=== PATIENT | female | born 1965 | race African-American/Black ===

== ENCOUNTER 2020-04-15 05:18 | Day surgery (SDC) | payer OTHER ==
--- OUTSIDE RECORDS SUMMARY | 2020-03-24 16:32 | XMS ---
:1965 Author Organization [facility] Care Team Providers Name Role Phone Mason Enciso Unavailable Mason Enciso Unavailable Lane Swanson Unavailable [phone] Williams Swanson Unavailable [phone] Williams Swanson Unavailable [phone] UNIQUE Kramer Unavailable Unavailable Re-disclosure Warning The records that you are about to access may contain information from federally- assisted alcohol or drug abuse programs. If such information is present, then the following federally mandated warning applies: This information has been disclosed to you from records protected by federal confidentiality rules (42 CFR part 2). The federal rules prohibit you from making any further disclosure of this information unless further disclosure is expressly permitted by the written consent of the person to whom it pertains or as otherwise permitted by 42 CFR part 2. A general authorization for the release of medical or other information is NOT sufficient for this purpose. The Federal rules restrict any use of the information to criminally investigate or prosecute any alcohol or drug abuse patient.The records that you are about to access may contain highly sensitive health information, the redisclosure of which is protected by Article 27-F of the [facility] Public Health law. If you continue you may haveaccess to information: Regarding HIV / AIDS; Provided by facilities licensed or operated by the [facility] Office of Mental Health; or Provided by the [facility] Office for People With Developmental Disabilities. If such information is present, then the following [facility] mandated warning applies: This information has been disclosed to you from confidential records which are protected by state law. State law prohibits you from making any further disclosure of this information without the specific written consent of the person to whom it pertains, or as otherwise permitted by law. Any unauthorized further disclosure in violation of state law may result in a fine or fpc sentence or both. A general authorization for the release of medical or other information is NOT sufficient authorization for further disclosure. Allergies and Adverse Reactions Type Description Substance Reaction Status Data Source(s ) Propensity to Propensity to Propensity to NEXTG EN ([facility] adverse reactions adverse reactions adverse reactions [facility] (disorder) (disorder) (disorder) [place]) Encounters Encounter Providers Location Date Indications Data Source(s ) Attender: Mason 03/23/2020 MEDGEN ([facility] [place] 12:00:00 AM ED Medical, ) Office Attender: Mason Enciso 03/23/2020 12:00:00 AM EDT MEDGEN ([facility], ) Office Outpatient Admitter: LANE Nichols 12/08/2018 10:39:00 [facility] AM EDT Medic al [place] M Outpatient Attender: LANE Nichols 12/08/2018 07:48:00 [facility] EDT - 12/08/2018 [facility] MAdmitter: LANE 01:27:00 PM EDT UNIQUE SHERMAN MReferrer: LANE Kramer Attender: Lane 12/08/2018 07:48:00 NEXTGEN ([facility] AM EDT - 12/08/2018 [facility] 07:48:00 AM EDT Center) Outpatient Attender: LANE Nichols 10/29/2018 01:04:00 [facility]ER[facility] EDT Medic al Center MAdmitter: LANE Kramer OutpatientOFFICE/OU Attender: [facility] 10/29/2018 01:04:00 NEXTGEN ([facility] VISIT, [facility] EDT - 10/29/2018 [facility] 01:04:00 PM EDT Center) Insurance Providers Payer name Policy type Policy ID Covered Covered republican's Policy P maite / Coverage republican ID relationship to [place] Inf ormation type knapp EMBLEM [id number] 1 [id number] HEALTH 1 HIP MEDICAID [id number] SP [id number] HIP O [id number] 01 [id number] 01 1 HIP O [id number] 01 [id number] Problems, Conditions, and Diagnoses Code Display Name Description Problem Type Effective Dates Data Source(s) M47.816 Spondylosis SPONDYLOSIS Problem 03/16/2020 MEDGEN ([facility] 12:00:00 AM EDT [facility], myelopathy or MYELOPATHY OR PC) radiculopathy, RADICULOPATHY, lumbar region LUMBAR REGION M47.812 Spondylosis SPONDYLOSIS Problem 03/16/2020 MEDGEN ([facility] without WITHOUT 12:00:00 AM EDT [facility], myelopathy or MYELOPATHY OR PC) radiculopathy, RADICULOPATHY, cervical region CERVICAL REGION K64.8 Other hemorrhoids OTHER HEMORRHOIDS Diagnosis 12/08/2018 [facility] 07:48:00 AM EDT Medical C enter 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 12/08/2018 Miguel A Cohen of sigmoid colon OF SIGMOID COLON 07:48:00 AM [facility] Z86.010 Personal history PERSONAL HISTORY Diagnosis 10/29/2018 Sa waylon Cohen of colonic polyps [facility] Procedure Description Date Indications Data Source(s) Documentation of current 03/16/2020 MED GEN ([facility] (procedure) 12:00:00 AM EDT MERY Mora) Documentation of current 03/16/2020 MED GEN ([facility] (procedure) 12:00:00 AM EDT MERY Mora) Documentation of current 03/16/2020 MED GEN ([facility] (procedure) 12:00:00 AM EDT MERY Mora) Documentation of current 03/16/2020 MED GEN ([facility] (procedure) 12:00:00 AM EDT MERY Mora) Documentation of current 03/16/2020 MED GEN ([facility] (procedure) 12:00:00 AM EDT MERY Mora) OFFICE OUTPATIENT NEW 30 03/16/2020 MED GEN ([facility] 12:00:00 AM EDT Medical, ) OFFICE/OUTPATIENT VISIT, 10/29/2018 NEX TGEN ([facility] 12:00:00 [facility]) 12:00:00 AM EDT Social History Code Duration Value Status Description Data Source(s ) Smoking 03/23/2020 Born: New completed Born: [place] MEDGEN (St 12:00:00 AM EDT [place] Ny occasional [facility] '[facility] Medical, occasional drinker smokes 5 PC) drinker smokes 5 cigarettes daily cigarettes daily Smoking 03/23/2020 Unknown if ever completed Unknown if ever MEDG EN (St 12:00:00 AM EDT smoked smoked [facility], ) Smoking Unknown if ever completed Unknown if ever Miguel A Cohen smoked smoked [facility] Vital Signs ID Date Data Source UNK Name Value Range Interpretation Code Description Data Source(s) Heart rate 77 /min 77 /min MEDGEN ([facility] , ) Respiratory rate 15 /min 15 /min [facility] ( [facility] , ) Inhaled oxygen 98 % 98 % MEDGEN ([facility], ) Body mass index 33.7 kg/m2 33.7 kg/m2 MEDGEN (S t (BMI) [Ratio] [facility], ) Diastolic blood 60 mm[Hg] 60 mm[Hg] MEDGEN (S t pressure [facility] , ) Systolic blood 120 mm[Hg] 120 mm[Hg] MEDGEN ([facility] , ) Body weight 215 lb 215 lb MEDGEN ([facility] , ) Body height 67 in 67 in MEDGEN ([facility] , ) Heart rate 89 /min 89 /min MEDGEN ([facility] , ) Respiratory rate 15 /min 15 /min MEDGEN ( [facility] , ) Inhaled oxygen 98 % 98 % MEDGEN ([facility], ) Body mass index 33.7 kg/m2 33.7 kg/m2 MEDGEN (S t (BMI) [Ratio] [facility], ) Diastolic blood 60 mm[Hg] 60 mm[Hg] MEDGEN (S t pressure [facility] , ) Systolic blood 110 mm[Hg] 110 mm[Hg] [facility] ([facility]) Body weight 215 lb 215 lb [facility] ([facility]) Body height 67 in 67 in [facility] ([facility]) Oxygen saturation in 97 % 97 % [facility] ([facility] Arterial blood by [facility] Pulse oximetry [place]) Body mass index 31.32 kg/m2 Overweight 31.32 kg/m2 [facility] ([facility] (BMI) [Ratio] [facility]) Respiratory rate 18 /min 18 /min [facility] ([facility]) Body temperature 36.56 Kaylah 36.56 Kaylah [facility] ([facility]) Heart rate 89 /min 89 /min [facility] ([facility]) Diastolic blood 90 mm[Hg] 90 mm[Hg] [facility] ( [facility]) Systolic blood 153 mm[Hg] 153 mm[Hg] [facility] ([facility]) Body weight 90.718 kg 90.718 kg [facility] ([facility]) Body height 170.18 cm 170.18 cm [facility] ([facility])
[2020-04-14 15:09] VITALS: BMI 33.6
--- NOTE | 2020-04-14 20:39 | PROC ---
Procedure Note Procedure: Pre procedure Diagnosis: Lumbar Spondylosis Post Procedure Diagnosis: same Anesthesia: Local Procedure Performed: Right and Left L3 L4 L5 Medial Branch Blocks under Fluoroscopic Guidance Procedure: After the risks and benefits were explained, informed consent was obtained. The patient was then taken to the procedure room and positioned prone on the procedure table. Time out was performed. The region overlying the appropriate vertebral bodies was identified using fluoroscopy. The skin was prepped and draped in the usual sterile fashion. The skin and soft tissues were anesthetized using 1% lidocaine. Using fluoroscopic guidance, 22 gauge 3.5 inch spinal needles were then introduced to the juncture of the superior articular processes and the transverse processes of the RIGHT L3, L4, and L5 medial branches are located. Omnipaque 180 confirmed appropriate needle placement. There was no epidural or vascular flow observed. .75% bupivacaine was drawn into a syringe. 0.5cc of this solution was then injected at each level. The same procedure was repeated on the LEFT side at the same levels. The patient tolerated the procedure well and there were no complications. The patient was taken to the post procedure recovery area in good condition. Vital signs remained stable before, and after the procedure. The patient was given oral follow-up instructions.The patient was givena follow up appointment with me in the near future. Mason Enciso D.O.
--- OUTSIDE RECORDS SUMMARY | 2020-04-15 05:21 | XMS ---
:1965 Author Organization [facility] Care Team Providers Name Role Phone NateMason bal Unavailable NateAguilar balhen Unavailable Re-disclosure Warning The records that you [...] is protected by Article 27-F of the [facility] Public Health law. If you continue you may haveaccess to information: Regarding HIV / AIDS; Provided by facilities licensed or operated by the [facility] Office of Mental Health; or Provided by the [facility] Office for People With Developmental Disabilities. If such information is present, then the following [facility] mandated warning applies: This information has [...] law may result in a fine or residential sentence or both. A general authorization for the release of medical or other information is NOT sufficient authorization for further disclosure. Encounters Encounter Providers Location Date Indications Data Source(s ) Attender: Mason 03/28/2020 MED[facility] ([facility] [place] 12:00:00 AM EDT Medical, PC) Office Attender: Mason [place] 03/28/2020 12:00:00 AM EDT [facility] ([facility]) Office Attender: Mason Natevaleriano 03/23/2020 12:00:00 AM EDT [facility] ([facility]) Office Attender: Mason Natevaleriano 03/23/2020 12:00:00 AM EDT [facility] ([facility]) Office Attender: Mason Natevaleriano 03/23/2020 12:00:00 AM EDT [facility] ([facility]) Office Attender: Mason Natea 03/23/2020 12:00:00 AM EDT [facility] ([facility]) Office Insurance Providers Payer name Policy type Policy ID Covered Covered green party's Policy P maite / Coverage green party ID relationship to [place] Inf ormation type knapp HIP MEDICAID [id number] [place] [id number] 1 [id number] 01 [facility] 1 HIP O [id number] 01 [id number] 01 1 HIP O [id number] Problems, Conditions, and Diagnoses Code Display Name [...] PC) radiculopathy, RADICULOPATHY, cervical region CERVICAL REGION M47.816 Spondylosis SPONDYLOSIS Problem 03/16/2020 MEDGEN ([facility] without WITHOUT 12:00:00 AM EDT [facility], myelopathy or MYELOPATHY OR PC) radiculopathy, RADICULOPATHY, lumbar region LUMBAR REGION M47.812 Spondylosis SPONDYLOSIS Problem 03/16/2020 MEDGEN ([facility] without WITHOUT 12:00:00 AM EDT [facility], myelopathy or MYELOPATHY OR PC) radiculopathy, RADICULOPATHY, cervical region CERVICAL REGION M47.816 Spondylosis SPONDYLOSIS Problem 03/16/2020 MEDGEN ([address] without WITHOUT 12:00:00 AM EDT [facility], myelopathy or MYELOPATHY OR PC) radiculopathy, RADICULOPATHY, lumbar region LUMBAR REGION M47.812 Spondylosis SPONDYLOSIS Problem 03/16/2020 MEDGEN ([facility] without WITHOUT 12:00:00 AM EDT [facility], myelopathy or MYELOPATHY OR PC) radiculopathy, RADICULOPATHY, cervical region CERVICAL REGION Surgeries/Procedures Procedure Description Date Indications Data Source(s) OFFICE OUTPATIENT VISIT 03/28/2020 MEDG EN ([facility] 10 MINUTES 12:00:00 AM ED Medical, ) Documentation of current 03/23/2020 MED GEN [facility] of current 03/23/2020 MED GEN ([facility] (procedure) 12:00:00 AM EDT idalmisical, ) Documentation of current 03/23/2020 MED GEN ([facility] OUTPATIENT VISIT 03/23/2020 MEDG EN ([facility] 25 MINUTES 12:00:00 AM EDT Medical, ) Documentation of current 03/23/2020 MED GEN ([facility] (procedure) 12:00:00 AM EDT idalmisical, ) OFFICE OUTPATIENT VISIT 03/23/2020 MEDG EN ([facility] 25 MINUTES 12:00:00 AM [facility] Medical, ) Documentation of current 03/16/2020 MED GEN ([facility] (procedure) 12:00:00 AM EDT edical, PC) Documentation of current 03/16/2020 MED GEN ([facility] (procedure) 12:00:00 AM EDT edical, PC) Documentation of current 03/16/2020 MED GEN ([facility] (procedure) 12:00:00 AM EDT edical, PC) Documentation of current 03/16/2020 MED GEN ([facility] (procedure) 12:00:00 AM EDT edical, PC) Documentation of current 03/16/2020 MED GEN ([facility] (procedure) 12:00:00 AM EDT edical, PC) Documentation of current 03/16/2020 MED GEN ([facility] (procedure) 12:00:00 AM EDT edical, PC) OFFICE OUTPATIENT NEW 03/16/2020 MED GEN ([facility] MINUTES 12:00:00 AM EDT Medical, PC) Documentation of current 03/16/2020 MED GEN ([facility] (procedure) 12:00:00 AM EDT idalmisical, PC) Documentation of current 03/16/2020 MED GEN ([facility] (procedure) 12:00:00 AM EDT idalmisical, PC) Documentation of current 03/16/2020 MED GEN ([facility] (procedure) 12:00:00 AM EDT idalmisical, PC) Documentation of current 03/16/2020 MED GEN ([facility] (procedure) 12:00:00 AM EDT edical, PC) Documentation of current 03/16/2020 MED GEN ([facility] (procedure) 12:00:00 AM EDT edical, PC) OFFICE OUTPATIENT NEW 03/16/2020 MED GEN ([facility] MINUTES 12:00:00 AM EDT Medical, PC) Documentation of current 03/16/2020 MED GEN ([facility] (procedure) 12:00:00 AM EDT edical, PC) Documentation of current 03/16/2020 MED GEN ([facility] (procedure) 12:00:00 AM EDT edical, PC) Documentation of current 03/16/2020 MED GEN ([facility] medications (procedure) 12:00:00 AM EDT M edical, PC) Documentation of current 03/16/2020 MED GEN ([facility] (procedure) 12:00:00 AM EDT [facility] raygozaical, PC) Documentation of current 03/16/2020 MED GEN ([facility] medications (procedure) 12:00:00 AM EDT M edical, PC) OFFICE OUTPATIENT NEW 30 03/16/2020 MED GEN ([facility] MINUTES 12:00:00 AM EDT Medical, PC) Social History Code Duration Value Status Description Data Source(s ) Smoking 03/28/2020 Born: New completed Born: [place] MEDGEN (St 12:00:00 AM EDT [facility] occasional [facility], occasional drinker smokes 5 PC) drinker smokes 5 cigarettes daily cigarettes daily Smoking 03/28/2020 Unknown if ever completed Unknown if ever MEDG EN (St 12:00:00 AM EDT smoked smoked [facility], PC) Smoking 03/23/2020 Born: New completed Born: [place] MEDGEN (St 12:00:00 AM EDT [facility] occasional [facility], occasional drinker smokes 5 PC) drinker smokes 5 cigarettes daily cigarettes daily Smoking 03/23/2020 Unknown if ever completed Unknown if ever MEDG EN (St 12:00:00 AM EDT smoked smoked [facility], PC) Smoking 03/23/2020 Born: New completed Born: [place] MEDGEN (St 12:00:00 AM EDT [facility] occasional [facility], occasional drinker smokes 5 PC) drinker smokes 5 cigarettes daily cigarettes daily Smoking 03/23/2020 Unknown if ever completed Unknown if ever MEDG EN (St 12:00:00 AM EDT smoked smoked [facility], PC) Vital Signs ID Date Data Source UNK Name Value Range Interpretation Code Description Data Source(s) Heart rate 77 /min 77 /min [facility] ([facility] , [facility]) Respiratory rate 15 /min 15 /min [facility]GEN ( [place]) Inhaled oxygen 98 % 98 % MEDGEN (St [facility]'s Medi semaj, PC) Body mass index 33.7 kg/m2 33.7 kg/m2 MEDGEN (S t (BMI) [Ratio] [facility], ) Diastolic blood 60 mm[Hg] 60 mm[Hg] MEDGEN (S t pressure [facility] , ) Systolic blood 120 mm[Hg] 120 mm[Hg] MEDGEN ([facility] , ) Body weight 215 lb 215 lb [facility] Body height 67 in in [facility] Heart rate 77 /min 77 /min [facility] Respiratory rate 15 /min 15 /min [facility] ( [facility] Inhaled oxygen 98 % 98 % MEDGEN ([facility], ) Body mass index 33.7 kg/m2 33.7 kg/m2 MEDGEN (S t (BMI) [Ratio] [facility], ) Diastolic blood 60 mm[Hg] 60 mm[Hg] MEDGEN (S t pressure [facility] , ) Systolic blood 120 mm[Hg] 120 mm[Hg] MEDGEN ([facility] , ) Body weight 215 lb 215 lb [facility] Body height 67 in in [facility] Heart rate 77 /min 77 /min [facility] Respiratory rate 15 /min 15 /min [facility] ( [facility] Inhaled oxygen 98 % 98 % MEDGEN ([facility], ) Body mass index 33.7 kg/m2 33.7 kg/m2 MEDGEN (S t (BMI) [Ratio] [facility], ) Diastolic blood 60 mm[Hg] 60 mm[Hg] MEDGEN (S t pressure [facility] , ) Systolic blood 120 mm[Hg] 120 mm[Hg] MEDGEN ([facility] , ) Body weight 215 lb 215 lb [facility] Body height 67 in 67 in [facility] Heart rate 89 /min 89 /min [facility] Respiratory rate 15 /min 15 /min [facility] ( [facility] Inhaled oxygen 98 % 98 % MEDGEN ([facility], ) Body mass index 33.7 kg/m2 33.7 kg/m2 MEDGEN (S t (BMI) [Ratio] [facility], ) Diastolic blood 60 mm[Hg] 60 mm[Hg] MEDGEN (S t pressure [facility] , ) Systolic blood 110 mm[Hg] 110 mm[Hg] MEDGEN ([facility] , ) Body weight 215 lb 215 lb MEDGEN ([facility] , ) Body height 67 in in [facility] ([facility] Heart rate 89 /min 89 /min MEDGEN ([facility] , ) Respiratory rate 15 /min 15 /min MEDGEN ( [facility] , ) Inhaled oxygen 98 % 98 % MEDGEN ([facility], ) Body mass index 33.7 kg/m2 33.7 kg/m2 MEDGEN (S t (BMI) [Ratio] [facility], ) Diastolic blood 60 mm[Hg] 60 mm[Hg] MEDGEN (S t pressure [facility] , ) Systolic blood 110 mm[Hg] 110 mm[Hg] MEDGEN ([facility] , ) Body weight 215 lb 215 lb [facility] ([facility] Body height 67 in in [facility] ([facility] Heart rate 89 /min 89 /min MEDGEN ([facility] , ) Respiratory rate 15 /min 15 /min MEDGEN ( [facility] , ) Inhaled oxygen 98 % 98 % MEDGEN ([facility], ) Body mass index 33.7 kg/m2 33.7 kg/m2 MEDGEN (S t (BMI) [Ratio] [facility], ) Diastolic blood 60 mm[Hg] 60 mm[Hg] MEDGEN (S t pressure [facility] , ) Systolic blood 110 mm[Hg] 110 mm[Hg] MEDGEN ([facility] , ) Body weight 215 lb 215 lb [facility] ([facility] Body height 67 in in [facility] ([facility]
[2020-04-15] MEDS ORDERED: DEXAMETHASONE SOD PHOSPHATE 4 MG/1 ML VIAL ONE (07:13)
[2020-04-15] MEDS ORDERED: LIDOCAINE HCL/PF 1% SDV 5ML VIAL ONE (07:13)
[2020-04-15] MEDS ORDERED: LIDOCAINE HCL 1% PRESERVATIVE FREE - 30ML VIAL SNB ONE ×2 (08:23)
[2020-04-15] MEDS ORDERED: DEXAMETHASONE SOD PHOSPHATE 10 MG/1 ML VIAL IVPUSH ONE (08:24)
[2020-04-15] MEDS ORDERED: IOHEXOL 180 MG/1 ML ML IJ ONE ×2 (08:25)
[2020-04-15] MEDS ORDERED: BUPIVACAINE HCL/PF 0.75% 10 ML VIAL ONE (08:32)
[2020-04-15] MEDS ORDERED: BUPIVACAINE HCL/PF 0.75% 10 ML VIAL NR ONE (08:41)
[2020-04-15 09:00] VITALS: TEMP 97.8
[2020-04-15] MEDS ORDERED: IBUPROFEN 400 MG TABLET (FP) PO ONE (09:34)
[2020-04-15 09:55] VITALS: BP 130/70; PULSE 72
== END 2020-04-15 09:50 | disposition home or self-care (01) ==
LOC: JASU-SURG 05:18
PROVIDERS: ATTEND Pain Medicine Pain Medicine
PROC: BR16YZZ Fluoroscopy of Lumbar Facet Joint(s) using Other Contrast (ICD-10-PCS; 2020-04-15)
PROC: 3E0T3BZ Introduction of Anesthetic Agent into Peripheral Nerves and Plexi, Percutaneous Approach (ICD-10-PCS; principal; 2020-04-15 08:00)
DX: M47.896 Other spondylosis, lumbar region (principal)
CPT/HCPCS: 76000-TC-FY; J1100